=== PATIENT | female | born 1990 | race American Indian/Alaskan Native ===

== ENCOUNTER 2017-06-13 18:50 | Emergency (ER) | payer MEDICAID ==
[2017-06-13 18:50] VITALS: BMI 22.8
[2017-06-13 19:46] VITALS: RESP 18; O2SAT 99
[2017-06-13] MEDS ORDERED: Apap-Butalbital-Caffeine 325-50-40mg Tab PO STA (20:15)
--- NOTE | 2017-06-13 20:36 | C.PDOC ---
History Of Present Illness 26 year old female with a Hx of headaches presents to the ER with a complaint of a right periorbital headache for the past 5 days. Patient states she did not take any OTC pain medication as they do not usually help. Pt states not worse headache but lasting longer. Denies nausea, vomiting, photophobia, eye pain, dizziness, weakness or URI symptoms. Time Seen by Provider: 06/13/17 19:55 Chief Complaint (Nursing): Headache History Per: Patient History/Exam Limitations: no limitations Onset/Duration Of Symptoms: Days Current Symptoms Are (Timing): Still Present Preceeding Symptoms: None Associated Symptoms: denies: Photophobia, Blurred Vision, Nausea, Vomiting, Extremity Weakness Recent travel outside of the [place]: No Past Medical History Reviewed: Historical Data, Nursing Documentation, Vital Signs Vital Signs: Last Vital Signs Temp 98.5 F 06/13/17 20:40 Pulse 74 06/13/17 20:40 Resp 18 06/13/17 20:40 BP 120/66 06/13/17 20:40 Pulse Ox 99 06/13/17 21:49 - Medical History PMH: Bronchitis, Rheumatoid Arthritis Surgical History: No Surg Hx Family History: States: Unknown Family Hx - Social History Hx Alcohol Use: No Hx Substance Use: No - Immunization History Hx Tetanus Toxoid Vaccination: No Hx Influenza Vaccination: No Hx Pneumococcal Vaccination: No Review Of Systems Constitutional: Negative for: Fever, Chills Eyes: Negative for: Pain, Vision Change, Other (Photophobia) Neurological: Positive for: Headache. Negative for: Dizziness Physical Exam - Physical Exam Appears: Non-toxic, No Acute Distress Skin: Normal Color, Warm, Dry Head: Atraumatic, Normacephalic Eye(s): bilateral: Normal Inspection, PERRL, EOMI Oral Mucosa: Moist Throat: Normal Neck: Normal, No Midline Cervical Tenderness, No Paracervical Tenderness, Supple Chest: Symmetrical Cardiovascular: Rhythm Regular Respiratory: Normal Breath Sounds, No Rales, No Rhonchi, No Wheezing Extremity: Normal ROM (x4) Neurological/Psych: Oriented x3, Normal Speech, Normal Cognition, Normal Motor, Normal Sensation, Other (No focal deficits) Gait: Steady ED Course And Treatment O2 Sat by Pulse Oximetry: 99 (Room air) Pulse Ox Interpretation: Normal Progress Note: Fioricet administered. Patient reports improvement of pain, will discharge with instructions to follow up with PMD. Disposition Counseled Patient/Family Regarding: Diagnosis, Need For Followup - Disposition Referrals: Clint Subramanian MD [Primary Care Provider] - Disposition: HOME/ ROUTINE Disposition Time: 20:33 Condition: STABLE Additional Instructions: Take meds as directed Bed rest/ Drink fluids Follow up with PMD Return to ER if worse Prescriptions: Acetaminophen/Butalbital/Caf [Fioricet] 1 tab PO TID PRN #20 tab PRN Reason: Headache Instructions: Migraine Headache (ED) Forms: [employer] ([employer]) - Clinical Impression Clinical Impression: Migraine headache - Scribe Statement The provider has reviewed the documentation as recorded by the Scribe Aquiles Byrd All medical record entries made by the Scribe were at my direction and personally dictated by me. I have reviewed the chart and agree that the record accurately reflects my personal performance of the history, physical exam, medical decision making, and the department course for this patient. I have also personally directed, reviewed, and agree with the discharge instructions and disposition.
[2017-06-13] MEDS ORDERED: Apap-Butalbital-Caffeine 325-50-40mg Tab ONE (20:38)
[2017-06-13 20:41] VITALS: BP 120/66; PULSE 74; TEMP 98.5
== END 2017-06-13 20:41 | disposition home or self-care (01) ==
LOC: SUPCPDRO 18:50 → C.ER 18:50
DX: G43.909 Migraine, unspecified, not intractable, without status migrainosus (principal)